=== PATIENT | female | born 1990 | race American Indian/Alaskan Native ===

== ENCOUNTER 2017-04-29 07:40 | Emergency (ER) | payer SELFPAY ==
[2017-04-29 08:07] VITALS: BP 121/83
== END 2017-04-29 12:32 | disposition left against medical advice (07) ==
LOC: ED 07:40
DX: K08.89 Other specified disorders of teeth and supporting structures (principal); R22.0 Localized swelling, mass and lump, head; F17.200 Nicotine dependence, unspecified, uncomplicated; Z53.21 Procedure and treatment not carried out due to patient leaving prior to being seen by health care provider
CPT/HCPCS: 99281